=== PATIENT | male | born 1980 | race Caucasian/White ===

== ENCOUNTER 2019-11-11 19:00 | Emergency (ER) | payer MEDICAID ==
[~2019-11-11] VITALS: Ht 175.3 cm; Wt 65.9 kg
[2019-11-11 19:05] VITALS: BP 130/96
[2019-11-11] MEDS ORDERED: HYDR-4353 PO (19:22)
[2019-11-11] MEDS ORDERED: HYDROcodone/acetaminophen 10/325mg tab PO ONE (19:45)
== END 2019-11-11 20:00 | disposition home or self-care (01) ==
LOC: ER 19:01
DX: S92.901A Unspecified fracture of right foot, initial encounter for closed fracture (principal); Z79.899 Other long term (current) drug therapy; W13.2XXA Fall from, out of or through roof, initial encounter; Y93.33 Activity, BASE jumping; Y92.009 Unspecified place in unspecified non-institutional (private) residence as the place of occurrence of the external cause; Y99.8 Other external cause status
CPT/HCPCS: 73630; 99283

== ENCOUNTER 2020-09-16 18:07 | Emergency (ER) | payer MEDICAID ==
[~2020-09-16] VITALS: Ht 175.3 cm; Wt 63.6 kg
[2020-09-16 19:01] LABS: HEMATOCRIT 47.1 % (42.0-52.0); MEAN CORPUSCULAR VOLUME 94.8 FL (78-98); RED BLOOD COUNT 4.97 X10'6 (4.70-6.10); WHITE BLOOD COUNT 12.9 X10'3 (4.5-11.0)
[2020-09-16 19:02] LABS: BASOPHILS % (AUTO) 0.3 % (0-1); EOSINOPHILS # (AUTO) 0.2 X10'3 (0-0.9); EOSINOPHILS % (AUTO) 1.9 % (0-6); HEMOGLOBIN 16.2 g/dl (14.0-17.9); LYMPHOCYTES # (AUTO) 2.8 X10'3 (1.1-4.8); LYMPHOCYTES % (AUTO) 21.5 % (21-51); MEAN CORPUSCULAR HEMOGLOBIN 32.5 PG (27.0-31.0); MEAN CORPUSCULAR HGB CONC 34.3 g/dL (33.0-36.5); MEAN PLATELET VOLUME 8.8 FL (7.4-10.4); MONOCYTES # (AUTO) 0.9 X10'3 (0-0.9); MONOCYTES % (AUTO) 6.6 % (2-12); NEUTROPHILS % (AUTO) 69.7 % (42-75); PLATELET COUNT 243 X10'3 (140-440); RED CELL DISTRIBUTION WIDTH 13.6 % (11.5-14.5)
[2020-09-16 19:09] LABS: ALANINE AMINOTRANSFERASE 26 U/L (12-78); ALBUMIN 4.1 G/DL (3.4-5.0); ALBUMIN/GLOBULIN RATIO 1.1 (1.1-1.5); ALKALINE PHOSPHATASE 92 IU/L (46-116); ANION GAP 8 (8-16); ASPARTATE AMINO TRANSFERASE 30 U/L (10-37); BILIRUBIN,TOTAL 0.3 MG/DL (0.1-1.0); BLOOD UREA NITROGEN 11 MG/DL (7-18); BUN/CREATININE RATIO 12.4 (5.4-32.0); CALCIUM 9.3 MG/DL (8.5-10.1); CHLORIDE 103 MMOL/L (99-107); CREATININE 0.89 MG/DL (0.60-1.10); ETHANOL < 0.010 GM/DL (0.0-0.010); GLUCOSE 110 MG/DL (70-104); SODIUM 138 MMOL/L (135-145); TOTAL CARBON DIOXIDE 27.5 MMOL/L (24-32); TOTAL PROTEIN 7.7 G/DL (6.4-8.2); eGFR > 90 ML/MIN
[2020-09-16 19:13] LABS: ACETAMINOPHEN < 2.0 UG/ML (10-30)
[2020-09-16 19:40] LABS: URINE AMPHETAMINE SCREEN POSITIVE (Neg); URINE BARBITUATE SCREEN NEGATIVE (Neg); URINE BENZODIAZEPINES SCREEN NEGATIVE (Neg); URINE CANNABINOID SCREEN POSITIVE (Neg); URINE COCAINE SCREEN NEGATIVE (Neg); URINE METHADONE SCREEN NEGATIVE (Neg); URINE OPIATE SCREEN NEGATIVE (Neg); URINE PHENCYCLIDINE SCREEN NEGATIVE (Neg)
--- NOTE | 2020-09-16 20:11 | NUR ---
Received ambulatory patient from room 16
--- NOTE | 2020-09-16 20:13 | NUR ---
Patient climbed in bed and went right to sleep. Breathing is even and unlabored. No s/s of distress.
--- NOTE | 2020-09-16 22:00 | NUR ---
Patient continues to sleep. He is on his left side. RR even and equal.
--- NOTE | 2020-09-17 00:55 | NUR ---
The patient is sleeping on his right side. Respirations are equal and unlabored.
--- NOTE | 2020-09-17 03:25 | NUR ---
Packet faxed to [facility]
--- NOTE | 2020-09-17 03:32 | NUR ---
patient lying supine in bed covers on eyes closed rr even un labored no observable s/s of acute stress at this time will continue to monitor while breaking primary RN
--- NOTE | 2020-09-17 03:52 | NUR ---
The patient is sleeping on his right side. Respirations are equal and unlabored.
[2020-09-17] MEDS ORDERED: NO HOME MEDS (05:34)
[2020-09-17 06:00] VITALS: BP 106/67
--- NOTE | 2020-09-17 06:44 | NUR ---
Patient sleeping on right side. No distress observed. Continue to monitor.
--- NOTE | 2020-09-17 08:20 | NUR ---
Patient eating breakfast. No distress observed. Patient has a swollen right eye with small bandage. Continue to monitor.
--- NOTE | 2020-09-17 08:59 | NUR ---
FAXED PACKET [facility]
--- NOTE | 2020-09-17 10:18 | NUR ---
Father at bedside. Patient crying in his arms for 30 seconds and then calmd down. Continue to monitor.
--- NOTE | 2020-09-17 10:55 | NUR ---
João POTTS, evaluating patient.
--- NOTE | 2020-09-17 11:40 | NUR ---
Patient being discharged off of [id number]. Father to come pick him up. Continue to monitor.
== END 2020-09-17 12:13 | disposition home or self-care (01) ==
LOC: ER 18:08
DX: S05.41XA Penetrating wound of orbit with or without foreign body, right eye, initial encounter (principal); F20.0 Paranoid schizophrenia; F15.90 Other stimulant use, unspecified, uncomplicated; X58.XXXA Exposure to other specified factors, initial encounter; Y93.89 Activity, other specified; Y92.89 Other specified places as the place of occurrence of the external cause; Y99.8 Other external cause status
CPT/HCPCS: 12011; 36415; 70450; 80053; 80305; 80320; 80329; 85025; 99284; 99285

== ENCOUNTER 2020-10-24 00:17 | Emergency (ER) | payer MEDICAID ==
[~2020-10-24] VITALS: Ht 175.3 cm; Wt 63.6 kg
[~2020-10-24 00:17] MED LIST: NO HOME MEDS
--- NOTE | 2020-10-24 00:23 | NUR ---
pt presented to the ER with police, he was screaming and was asked politely to not to do as we had very sick patient's. He refused to comply and was asked to be taken outside.
[2020-10-24 01:29] VITALS: BP 158/83
== END 2020-10-24 01:30 ==
LOC: ER 00:17
DX: S80.02XA Contusion of left knee, initial encounter (principal); S09.90XA Unspecified injury of head, initial encounter; M25.562 Pain in left knee; R42 Dizziness and giddiness; H92.01 Otalgia, right ear; F15.90 Other stimulant use, unspecified, uncomplicated; Z72.89 Other problems related to lifestyle; X58.XXXA Exposure to other specified factors, initial encounter; Y93.89 Activity, other specified; Y92.89 Other specified places as the place of occurrence of the external cause; Y99.8 Other external cause status
CPT/HCPCS: 99283

== ENCOUNTER 2020-11-20 12:07 | Emergency (ER) | payer MEDICAID ==
[~2020-11-20] VITALS: Ht 175.3 cm; Wt 60.1 kg
[2020-11-20 12:50] LABS: BASOPHILS # (AUTO) 0.1 X10'3 (0-0.2); BASOPHILS % (AUTO) 0.8 % (0-1); EOSINOPHILS # (AUTO) 0.2 X10'3 (0-0.9); EOSINOPHILS % (AUTO) 1.8 % (0-6); HEMATOCRIT 47.5 % (42.0-52.0); LYMPHOCYTES # (AUTO) 2.7 X10'3 (1.1-4.8); LYMPHOCYTES % (AUTO) 26.8 % (21-51); MEAN CORPUSCULAR HEMOGLOBIN 33.2 PG (27.0-31.0); MEAN CORPUSCULAR HGB CONC 33.8 g/dL (33.0-36.5); MEAN CORPUSCULAR VOLUME 98.3 FL (78-98); MEAN PLATELET VOLUME 8.7 FL (7.4-10.4); MONOCYTES # (AUTO) 0.8 X10'3 (0-0.9); MONOCYTES % (AUTO) 7.8 % (2-12); NEUTROPHILS # (AUTO) 6.3 X10'3 (1.8-7.7); NEUTROPHILS % (AUTO) 62.8 % (42-75); PLATELET COUNT 262 X10'3 (140-440); RED BLOOD COUNT 4.83 X10'6 (4.70-6.10); RED CELL DISTRIBUTION WIDTH 14.4 % (11.5-14.5); WHITE BLOOD COUNT 10.1 X10'3 (4.5-11.0)
[2020-11-20] MEDS ORDERED: ondansetron/PF 4mg/2ml inj IV ONE (12:55)
[2020-11-20] MEDS ORDERED: normal saline 1000ml 1,000 ML IV ONE (12:55)
[2020-11-20] MEDS ORDERED: pantoprazole 40 MG vial IV ONE (12:55)
[2020-11-20 13:07] LABS: ALANINE AMINOTRANSFERASE 33 U/L (12-78); ALBUMIN 4.1 G/DL (3.4-5.0); ALBUMIN/GLOBULIN RATIO 1.1 (1.1-1.5); ALKALINE PHOSPHATASE 85 IU/L (46-116); ANION GAP 5 (8-16); ASPARTATE AMINO TRANSFERASE 27 U/L (10-37); BILIRUBIN,TOTAL 0.3 MG/DL (0.1-1.0); BLOOD UREA NITROGEN 9 MG/DL (7-18); BUN/CREATININE RATIO 13.8 (5.4-32.0); CALCIUM 8.7 MG/DL (8.5-10.1); CHLORIDE 106 MMOL/L (99-107); CREATININE 0.65 MG/DL (0.60-1.10); GLUCOSE 91 MG/DL (70-104); LIPASE 78 U/L (73-393); POTASSIUM 4.1 MMOL/L (3.5-5.1); SODIUM 140 MMOL/L (135-145); TOTAL CARBON DIOXIDE 28.8 MMOL/L (24-32); TOTAL PROTEIN 7.9 G/DL (6.4-8.2); eGFR > 90 ML/MIN
[2020-11-20] MEDS ORDERED: PANT20TA18 PO (13:12)
[2020-11-20] MEDS ORDERED: ONDA4TAB6 PO (13:12)
[2020-11-20] MEDS ORDERED: LIDOcaine Viscous 15ml cup MM ONE (13:15)
[2020-11-20] MEDS ORDERED: mag hydrox/Alum hydrox/simeth 30ml oral suspension PO ONE (13:15)
[2020-11-20 13:48] VITALS: BP 136/93
[2020-11-20 14:09] LABS: CLARITY,URINE CLEAR (Clear); COLOR,URINE YELLOW (Yellow); GLUCOSE, URINE NEGATIVE (Neg); KETONES,URINE TRACE mg/dl (Neg); LEUKOCYTE ESTERASE ,URINE NEGATIVE (Neg); NITRITES, URINE NEGATIVE (Neg); OCCULT BLOOD,URINE TRACE-LYSED (Neg); PH,URINE 5.5 (4.8-8.0); PROTEIN,URINE NEGATIVE (Neg); UROBILINOGEN,URINE 0.2 E.U/dL (0.2-1.0)
[2020-11-20 14:15] LABS: UA COLLECTION TYPE CLN CATCH MIDSTREAM
[2020-11-20 14:16] LABS: BACTERIA,URINE FEW /HPF (Neg); MUCUS STRANDS FEW /LPF (Neg); SQUAMOUS EPITHELIAL CELL,UR FEW /LPF (FEW)
[2020-11-20 14:17] LABS: RBC,URINE 0-2 /HPF (0-2); WBC,URINE 0-4 /HPF (0-4)
[2020-11-20 14:19] LABS: TRANSITIONAL EPI CELLS,URINE FEW /HPF
== END 2020-11-20 14:08 | disposition home or self-care (01) ==
LOC: ER 12:08
DX: K29.20 Alcoholic gastritis without bleeding (principal); F10.10 Alcohol abuse, uncomplicated; Y90.0 Blood alcohol level of less than 20 mg/100 ml; F15.90 Other stimulant use, unspecified, uncomplicated; Z79.899 Other long term (current) drug therapy
CPT/HCPCS: 36415; 80053; 81001; 83690; 85025; 96361; 96374; 96375; 99284; C9113; J2405; J7030

== ENCOUNTER 2022-02-06 18:23 | Emergency (ER) | payer MEDICAID ==
[~2022-02-06] VITALS: Ht 175.3 cm; Wt 65.9 kg
[~2022-02-06 18:23] MED LIST changes: +ONDA4TAB6 PO; +PANT20TA18 PO
[2022-02-06 18:52] VITALS: BP 103/63
== END 2022-02-06 21:10 | disposition home or self-care (01) ==
LOC: ER 18:24
DX: G56.03 Carpal tunnel syndrome, bilateral upper limbs (principal); F15.20 Other stimulant dependence, uncomplicated; Z87.891 Personal history of nicotine dependence
CPT/HCPCS: 29260; 99283; L3908; 29125

== ENCOUNTER 2023-07-06 10:30 | Emergency (ER) | payer MEDICAID ==
[~2023-07-06] VITALS: Ht 175.3 cm; Wt 62.0 kg
[2023-07-06] MEDS ORDERED: DOXY-11 PO (11:30)
[2023-07-06] MEDS ORDERED: NAPR-56 PO (11:30)
[2023-07-06 11:41] VITALS: BP 162/110; PULSE 78; RESP 19; TEMP 98.2; O2SAT 98
== END 2023-07-06 11:59 | disposition home or self-care (01) ==
LOC: ER 10:31
DX: K04.7 Periapical abscess without sinus (principal); F15.10 Other stimulant abuse, uncomplicated
CPT/HCPCS: 99283